=== PATIENT | female | born 1955 | race Two or more races ===

== ENCOUNTER 2023-06-24 09:50 | Outpatient (CLI) | payer MEDICARE ==
[2023-06-24 10:10] LABS: BASOPHILS % (AUTO) 0.7 %; EOSINOPHILS # (AUTO) 0.4 10^3/uL (0.0-0.7); EOSINOPHILS % (AUTO) 6.6 %; HCT - HEMATOCRIT 37.2 % (37.0-47.0); LYMPHOCYTES # (AUTO) 1.7 10^3/uL (1.5-3.5); LYMPHOCYTES % (AUTO) 28.1 %; MEAN CORPUSCULAR HEMOGLOBIN 30.4 pg (27.0-31.0); MEAN CORPUSCULAR HGB CONC 34.9 g/dL (32.0-36.0); MEAN CORPUSCULAR VOLUME 87.1 fL (81.0-99.0); MEAN PLATELET VOLUME 10.9 fL (7.9-10.8); MONOCYTES # (AUTO) 0.4 10^3/uL (0.0-1.0); MONOCYTES % (AUTO) 5.9 %; NEUTROPHILS # (AUTO) 3.5 10^3/uL (1.5-6.6); NEUTROPHILS % (AUTO) 58.5 %; PLT - PLATELET COUNT 214 10^3/uL (130-450); RED BLOOD COUNT 4.27 10^6/uL (4.20-5.40); RED CELL DISTRIBUTION WIDTH 13.5 % (12.0-15.0)
[2023-06-24 10:29] LABS: ALBUMIN 4.3 g/dL (3.2-5.5); ALBUMIN/GLOBULIN RATIO 1.5 (1.0-2.2); ALKALINE PHOSPHATASE 60 IU/L (42-121); ALT ALANINE AMINOTRANSFERASE 21 IU/L (10-60); AST ASPARTATE AMINOTRANSFERASE 16 IU/L (10-42); BILIRUBIN,TOTAL 0.7 mg/dL (0.2-1.0); BUN - BLOOD UREA NITROGEN 22 mg/dL (6-20); CALCIUM 9.8 mg/dL (8.5-10.3); CARBON DIOXIDE - CO2 25 mmol/L (21-32); CHLORIDE 100 mmol/L (101-111); CHOL/HDL RATIO 2.8 (<4.4); CHOLESTEROL 132 mg/dL; CREATININE 0.8 mg/dL (0.6-1.3); GFR - MDRD 72 (>89); GLUCOSE 296 mg/dL (74-104); HDL CHOLESTEROL 47 mg/dL; LDL CHOLESTEROL,CALCULATED 49 mg/dL; POTASSIUM 4.3 mmol/L (3.5-4.5); SODIUM 134 mmol/L (135-145); TOTAL PROTEIN 7.2 g/dL (6.4-8.9); TRIGLYCERIDES 181 mg/dL (48-352); VLDL CHOLESTEROL 36 mg/dL
[2023-06-24 10:34] LABS: CREATININE,URINE 39.2 mg/dL; MICROALBUM/CREATININE RATIO,UR 56.1 ug/mg (<30.0); MICROALBUMIN,URINE 2.2 mg/dL
[2023-06-24 10:40] LABS: THYROID STIMULATING HORMONE 2.94 uIU/mL (0.34-5.60)
[2023-06-24 11:53] LABS: ESTIMATED AVERAGE GLUCOSE 255 mg/dL (70-100); HEMOGLOBIN A1c% 10.5 % (4.27-6.07)
== END 2023-06-24 09:51 | disposition home or self-care (01) ==
LOC: DI 09:50
PROVIDERS: ATTEND Nurse Practitioner Acute Care
DX: I25.2 Old myocardial infarction (principal); I08.3 Combined rheumatic disorders of mitral, aortic and tricuspid valves; R00.1 Bradycardia, unspecified; M81.0 Age-related osteoporosis without current pathological fracture; E11.9 Type 2 diabetes mellitus without complications; I50.9 Heart failure, unspecified; Z13.228 Encounter for screening for other metabolic disorders; Z13.220 Encounter for screening for lipoid disorders; Z13.29 Encounter for screening for other suspected endocrine disorder; Z13.0 Encounter for screening for diseases of the blood and blood-forming organs and certain disorders involving the immune mechanism
CPT/HCPCS: 36415; 80053; 80061; 82043; 82306; 82570; 83036; 83721; 83880; 84443; 85025; 93307

== ENCOUNTER 2023-06-29 12:33 | Outpatient (CLI) | payer MEDICARE ==
--- NOTE | 2023-06-30 10:09 | Mammography Report ---
BILATERAL DIGITAL SCREENING MAMMOGRAM 3D/2D: 06/29/2023 CLINICAL: Baseline exam. Routine screening. No prior exams were available for comparison. There are scattered areas of fibroglandular density in both breasts (category b / 25%-50% glandular t issue). There are benign calcifications in both breasts. There also are benign vascular calcifications in meng th breasts. No significant masses, calcifications, or other findings are seen in either breast. IMPRESSION: BENIGN There is no mammographic evidence of malignancy. A 1 year screening mammogram is recommended. Based on the Tyrer Cuzick model (a risk assessment model) the patient's lifetime risk is 6.7% and her 10 year risk is 3.5%. According to the ACR, ACS, and NCCN guidelines, an annual breast MRI exam trisha g with mammogram is recommended if the patient's lifetime risk is 20% or greater. This exam was interpreted at Station ID: [id number]. NOTE: For mammograms, a report in lay terms will be sent to the patient. Approximately 15% of breast malignancies will not be visualized mammographically. In the management of a palpable breast mass, a negative mammogram must not discourage biopsy of a clinically suspicious lesion. Electronically Signed By: Kendall prieto/johann:06/29/2023 14:08:41 letter sent: No_Letter ACR BI-RADS Category 2: Benign Finding(s) 3342F PARENCHYMAL PATTERN: (A) - The breast(s) demonstrate(s) scattered fibroglandular densities. BI-RADS CATEGORY: (2) - 2 RECOMMENDATION: (ANNUAL) - Recommend routine annual screening mammography. [id number] 1 year screening LATERALITY: (B)
== END 2023-06-29 12:34 | disposition home or self-care (01) ==
LOC: DI.N 12:33
PROVIDERS: ATTEND Nurse Practitioner Acute Care
DX: Z12.31 Encounter for screening mammogram for malignant neoplasm of breast (principal); R92.323 Mammographic fibroglandular density, bilateral breasts

== ENCOUNTER 2023-07-29 15:36 | Outpatient (CLI) | payer MEDICARE ==
--- NOTE | 2023-07-29 16:53 | DEXA Report ---
PROCEDURE: Dexa Spine and/or Hip INDICATIONS: POST MENOPAUSAL TECHNIQUE: Dual energy x-ray absorptiometry (DXA) was performed on a [employer] System. Regions measur ed are the AP Spine, femoral neck, and if needed forearm. COMPARISON: None FINDINGS: Lumbar Spine: Bone Mineral Density: 0.905 g/cm/cm,T score: -2.3. Left Femoral Neck: Bone Mineral Density: 0.697 g/cm/cm, T score: -2.5. Left Hip: Bone Mineral Density: 0.772 g/cm/cm,T score: -1.9. (T score greater or equal to -1.0: NORMAL) (T score from -1.1 to -2.4: OSTEOPENIA) (T score less than or equal to -2.5 to: OSTEOPOROSIS) Impression: By WHO criteria, this patient has osteoporosis. Patients with diagnosis of osteoporosis or osteopenia should have regular bone mineral density assess ment. For those eligible for Medicare, routine testing is allowed once every 2 years. Testing frequ ency can be increased for patients who have rapidly progressing disease or for those who are receivin g medical therapy to restore bone mass. Reviewed by: Rakan Cespedes MD on 07/29/2023 4:51 PM PDT Approved by: Rakan Cespedes MD on 07/29/2023 4:51 PM PDT Station ID: [id number]
--- NOTE | 2023-07-29 17:23 | CT Report ---
PROCEDURE: Lung Cancer Screen INDICATIONS: LUNG CA SCREENING TECHNIQUE: A CT scan of the chest was performed. Intravenous contrast media was not administered. Images were re corded and evaluated at appropriate window settings. Reformats: axial MIP of the chest, coronal and s agittal. For radiation dose reduction, the following was used: automated exposure control, adjustment of mA and/or kV according to patient size. COMPARISON: None. FINDINGS: Image quality: Excellent. Prior cancer history: Unsure. Lungs and pleura: No pleural effusions. No pneumothorax. Ground glass pulmonary nodule at the left ap ex measuring 0.4 cm, (07/18). Curvilinear opacity at the lung bases. Mediastinum: Heart size is normal. Dense coronary artery calcifications in the LAD. No pericardial ef fusion. No large vessel abnormality. Moderate calcified plaque at the aortic arch. No mediastinal aristeo nopathy by size criteria. Chest wall and lower neck: Thyroid is unremarkable. No axillary or supraclavicular adenopathy by size . Bones: No aggressive osseous abnormality. Upper Abdomen: Small left adrenal adenoma measuring 0.9 cm. IMPRESSION: Lung RAD: 2 - Benign. Recommendation: Continue annual screening in 12 Months with LDCT Non-Lung Significant Findings: Coronary Arterial Calcification - Moderate or Severe. Reviewed by: Kendall Hutton MD on 07/29/2023 5:21 PM PDT Approved by: Kendall Hutton MD on 07/29/2023 5:21 PM PDT Station ID: [id number]
== END 2023-07-29 15:37 | disposition home or self-care (01) ==
LOC: DI 15:36
PROVIDERS: ATTEND Nurse Practitioner Acute Care
DX: Z12.2 Encounter for screening for malignant neoplasm of respiratory organs (principal); M81.0 Age-related osteoporosis without current pathological fracture; I25.10 Atherosclerotic heart disease of native coronary artery without angina pectoris; Z78.0 Asymptomatic menopausal state

== ENCOUNTER 2023-12-04 20:11 | Emergency (ER) | payer MEDICARE ==
--- NOTE | 2023-12-04 20:42 | ED Physician Documentation ---
History of Present Illness - Stated complaint Stated Complaint: SOA - Chief complaint Chief Complaint: Resp - Additonal information Additional information: 68-year-old female presents emergency department for shortness of breath. She has history of CHF she tested positive for COVID today and said that she was worried because the original strains were very dangerous and just wanted to make sure that she was okay. She is not in any acute respiratory distress at this point in time she has not taken any medications such as Tylenol or ibuprofen for her COVID symptoms. No nausea or vomiting unsure presenting fevers or chills. PD PAST MEDICAL HISTORY - Past Medical History Past Medical History: Yes Cardiovascular: Congestive heart failure, Hypertension, High cholesterol Endocrine/Autoimmune: Type 2 diabetes, HyPOthyroidism Other Past Medical History: Colon CA - Past Surgical History Past Surgical History: Yes - Allergies Allergies/Adverse Reactions: Allergies Allergy/AdvReac Type Severity Reaction Status Date / Time No Known Drug Allergies Allergy Verified 12/04/23 20:19 - Social History Does the pt smoke?: No Smoking Status: Never smoker Does the pt drink ETOH?: No Does the pt have substance abuse?: No - Immunizations Immunizations are current?: Yes - POLST Patient has POLST: No PD ED PE NORMAL - Vitals Vital signs reviewed: Yes - General General: Alert and oriented X 3, No acute distress, Well developed/nourished - Cardiac Cardiac: RRR - Respiratory Respiratory: No respiratory distress, Clear bilaterally - Abdomen Abdomen: Normal bowel sounds, Soft, Non tender, No organomegaly - Back Back: No CVA TTP, No spinal TTP - Extremities Extremities: No edema, No calf tenderness / cord Results - Vitals Vitals: Oxygen O2 Source Room air - Rads (name of study) Chest x-ray Relevant Findings:: Final report received, EMP independent interpretation of test, Other PD Medical Decision Making - ED course ED course: 68-year-old female presents emergency department for shortness of breath due to COVID. Chest x-ray was complete which revealed cardiomegaly which is known patient has known CHF. I considered the possibility of a PE but she has no hypoxia no tachycardia low risk for Wells score. Patient has not taken any medications such as Tylenol ibuprofen for her fevers or chills or bodyaches. She is breathing without any difficulty she has clear breath sounds bilaterally and does not appear to be acutely ill. She is wondering about a prescription of Paxlovid I informed her that with the current COVID strain that there is no data that supports that Paxlovid reduces morbidity or mortality especially given the fact that the current strain that is going around is not causing hospitalizations. Patient was relieved and very reassured she was given Tylenol ibuprofen here in the emergency department she is told strict ER return precautions and told how to manage her COVID symptoms at home. All questions answered patient is safe for discharge at this time. Departure - Departure Disposition: 01 Home, Self Care Clinical Impression: COVID-19 Instructions: ED Viral Syndrome Comments: Thank you for trusting us with your care. Your chest x-ray does not show any acute abnormal findings. You appear to have COVID but this is going to take time to get over take Tylenol ibuprofen for pain or discomfort you can also take Mucinex drink plenty of fluids get plenty of rest and eat a healthy well- balanced diet. Follow-up with your primary care provider as needed. Forms: PCP List Discharge Date/Time: 12/04/23 21:46
--- NOTE | 2023-12-04 21:09 | XRAY Report ---
PROCEDURE: Chest 1V INDICATIONS: SOA TECHNIQUE: One view of the chest was acquired. COMPARISON: None. FINDINGS: Surgical changes and devices: None. Lungs and pleura: An incomplete inspiratory result is noted, with low lung volumes and crowding of t he vascular markings. No focal infiltrates are seen. No large pneumothorax or large pleural effusion can be seen. Mild generalized interstitial prominence can be seen. Mediastinum: Mediastinal contours appear normal. Heart size is mildly enlarged. Bones and chest wall: No suspicious bony lesions. Overlying soft tissues appear unremarkable. IMPRESSION: Cardiomegaly with interstitial prominence. Please consider CHF. No focal infiltrates are seen. If there is strong clinical concern for a developing or new pulmonary process, please consider a shor t-term follow-up 2 view chest series, performed in deep inspiration. Reviewed by: Graeme Chamorro MD on 12/04/2023 8:08 PM PARESH Approved by: Graeme Chamorro MD on 12/04/2023 8:08 PM PARESH Station ID: [id number]
[2023-12-04] MEDS: ONDANSETRON ODT 4 MG TABLET TL STA (21:32)
[2023-12-04] MEDS: KETOROLAC 15 MG/ML VIAL IM STA (21:32)
[2023-12-04] MEDS: ACETAMINOPHEN 500 MG TABLET PO STA (21:32)
[2023-12-04 21:41] VITALS: BP 137/68; O2SAT 98
[2023-12-05] MEDS ORDERED: guaiFENesin 600 MG TABLET PO SCH (09:00)
== END 2023-12-04 21:46 | disposition home or self-care (01) ==
LOC: ED 20:11
DX: U07.1 COVID-19 (principal); I50.9 Heart failure, unspecified
CPT/HCPCS: 71045; 99283; 99284; A9270; Q0162

== ENCOUNTER 2023-12-15 13:45 | Outpatient (CLI) | payer MEDICARE ==
--- NOTE | 2023-12-15 14:33 | SLEEP CARE CONSULTATION ---
Information from patient questionnaire entered by Chirag Collins. I have reviewed and concur with the information entered by Chirag Collins. This document represents the service I personally performed and the decisions made by me, Sayra Ring ARNP. History of Present Illness Service Date and Time: 12/15/2023 1400 Reason for Visit: New patient, Previously diagnosed sleep apnea, sleep apnea on CPAP therapy Usual bedtime: 2100 Time it takes to fall asleep: 60MINS Snores at night: Yes Observed to quit breathing while asleep: Yes Sleeps alone due to snoring: No Number of times waking at night: 3-4 Reasons for waking at night: reports: Bathroom Toss, Turn, or Twitch while sleeping: Yes Recalls having dreams: Yes Usually gets out of bed at: 0900 Feels refreshed in the morning: No Morning headache: No Sleepy or fatigued during the day: Yes Ever fallen asleep while driving: No Takes day naps: No Dreams during day naps: No Prior sleep studies: Yes Year and Where: 2006 [facility], [place], [place] Additional HPI information: DACIA LOVE was previously diagnosed to have unknown, AHI unknown, obstructive sleep apnea-hypopnea syndrome and comes in today to establish care for CPAP therapy. She was originally diagnosed in 2006 at [facility]. She does not know her severity but is on CPAP with pressure set at 12 cmH2O. She comes in today to establish care. She does not have a copy of her last sleep study. - Parasomnia Symptoms Ever been unable to move upon waking from sleep: No Walks in sleep: No Talks in sleep: No Ever acted out dreams in sleep: No Ever felt weak in the knees when startled or emotional: No Bothered by creepy, crawly, restless sensations in legs: No Problems with memory or concentration: Yes CPAP Compliance Data - Data Reviewed with Patient Average duration of nightly device use: 4 hours 55 minutes Compliance rate %: 49 (75/90 days used) Current pressure setting (cmH2O): 12 Average residual AHI: 5.1 Central apnea: 2.7 Obstructive apnea: 1.6 Average large leak: 4.8 L/min Compliance data discussion: She has a ResMed Airsense 10 that she received in 2020. She has not been getting supplies for a long time. She is using a full face mask, AirFit F20. She has not been able to change her cushion for a long time. Subjective Missed days of use due to: reports: illness Patient concerns: reports: mask discomfort, mask leak noise, condensation in mask/hose, dry mouth, nose, throat. denies: aerophagia, air blowing in eyes, nasal congestion, epistaxis Observed to snore while using device: No Current pressure setting perceived as: comfortable On therapy, patient: reports: sleeping better, awakening more refreshed, being more awake and alert during the day, more rested overall. denies: drowsiness while driving Initial [place] Sleepiness Scale score: 7 (12/15/23) Past Medical History Past Medical History: reports: Hypertension, Congestive Heart Failure, Diabetes, Hypothyroidism, Anxiety, Other (heart attack 2006) Social History The patient's occupation is a RE. Patient is and lives in . Have you smoked in the past 12 months: No Cigarettes per day (20/pack): 20 Quit date: 2006 Alcohol use: No Caffeine use: Yes Caffeine amount and frequency: 2 cups daily Family History Family history of sleep disordered breathing: Yes Family Hx Sleep Apnea: Other: Snoring (SON), Sleep apnea - Untreated (SON) Allergies and Home Medications Known drug allergies: No Drug allergies reviewed: Yes Home medication list reviewed: Yes (as listed) Allergy and home medication list: Allergies No Known Drug Allergies Allergy (Verified 12/04/23 20:19) Review of Systems Weight gain over past 5 years: 2-3 Cardiovascular: reports: high blood pressure Gastrointestinal: denies: heartburn Neurological: denies: headaches Psychiatric: reports: anxiety Ear/Nose/Throat: reports: dry mouth/throat. denies: tonsillectomy Endocrine: reports: thyroid disease, excessive thirst, increased urination Musculoskeletal: reports: joint pain Physical Exam Vital signs obtained and entered by: CHIRAG Hicks MA Blood Pressure: 157/69 (LEFT ARM) Cuff size: regular Heart Rate: 65 O2 Saturation: 99 Height: 4 ft 10 in Weight: 160 lb Body Mass Index: 33.4 BMI Classification: Obese Neck circumference: 15 Mouth and throat: narrow oropharynx Soft palate: long Hard palate: normal Uvula: normal Uvula visualization: 25% Mallampati Class III Tongue: normal in size Tonsils: small Neck: normal w/o lymphadenopathy or thyromegaly Heart: regular rate and rhythm Lungs: clear bilaterally Impression and Plan 1. Obstructive Sleep Apnea-Hypopnea Syndrome, unknown, with fair treatment compliance and good apnea control with minimal elevation of residual AHI. On CPAP therapy, the patient has better sleep quality and is more rested overall. She has not been getting supplies for a long time and needs to change her mask cushion to reduce air leaking and dry mouth. I explained how to adjust her humidity and heated hose to reduce dry mouth and condensation, too. I do not have a copy of her last sleep study and will order a new stud to verify diagnosis and severity. I will set her up with a new DME for supplies if we are able to get a copy of last sleep study. Otherwise, we will do this after the confirming sleep study. I will make no adjustments today. Patient's apnea severity and rationale for treatment to reduce apnea, improve sleep quality and reduce cardiovascular and cerebrovascular events was reviewed. I also reviewed the benefit of consistent device use of CPAP for hypertension, cardiac disease, diabetes, anxiety. 2. Obesity, unspecified. Currently patients BMI is 33.4. Obesity increases the risk of apnea, CPAP pressure requirements and overall health risks especially cardiovascular and diabetes. Thus patient is advised to lose weight. * Continue auto CPAP pressure at 12 cmH2O * PSG to verify diagnosis and severity * Update supplies with [facility] if able to get copy of sleep study * Notify me if snoring with mask or feeling that the pressure is too much or too little * Attempt to lose weight * Call this office if any problems using CPAP * Return for follow up after sleep study, or sooner if concerns arise Continue with device pressure at (cmH2O): 12 Counseling Topics: Spare mask, Weight loss health impact Prescriptions: Device supplies (if able to get sleep study) Plan: PSG/HST and followup Visit Type: In Office Time Spent with Patient (minutes): 39 Provider Statement: I spent 100% of the Face to Face Visit with the patient with greater than 50% spent counseling the patient and coordination of care.
[2023-12-15 14:38] VITALS: BP 157/69; O2SAT 99
== END 2023-12-15 13:46 | disposition home or self-care (01) ==
LOC: SC 13:45
PROVIDERS: ATTEND Nurse Practitioner Family
DX: G47.33 Obstructive sleep apnea (adult) (pediatric) (principal); E66.9 Obesity, unspecified; Z68.33 Body mass index [BMI] 33.0-33.9, adult; Z87.891 Personal history of nicotine dependence
CPT/HCPCS: 99203; G0463; 99212